=== PATIENT | male | born 1995 | race African-American/Black ===

== ENCOUNTER 2020-01-20 01:45 | Emergency (ER) | payer SELFPAY ==
[~2020-01-20] VITALS: Ht 188 cm; Wt 91.2 kg
[2020-01-20] MEDS ORDERED: BACITRACIN TOP OINT 1 UD PKG TOP ONE (06:00)
[2020-01-20 06:12] VITALS: BP 146/85
== END 2020-01-20 06:24 | disposition home or self-care (01) ==
LOC: ER 01:49
DX: S22.32XA Fracture of one rib, left side, initial encounter for closed fracture (principal); S13.9XXA Sprain of joints and ligaments of unspecified parts of neck, initial encounter; S60.512A Abrasion of left hand, initial encounter; S60.511A Abrasion of right hand, initial encounter; S80.212A Abrasion, left knee, initial encounter; S80.211A Abrasion, right knee, initial encounter; S50.312A Abrasion of left elbow, initial encounter; S70.212A Abrasion, left hip, initial encounter; V28.4XXA Motorcycle driver injured in noncollision transport accident in traffic accident, initial encounter; Y93.89 Activity, other specified; Y99.8 Other external cause status; Y92.89 Other specified places as the place of occurrence of the external cause
CPT/HCPCS: 70450; 71250; 72125; 73080; 73130; 73560; 74176